=== PATIENT | male | born 1960 ===

== ENCOUNTER 2023-10-28 12:54 | Outpatient (AMB) | payer OTHER, SELFPAY ==
--- NOTE | 2023-10-28 13:01 | A.OFFVIS_ITS ---
Vital Signs 10/28/23 13:08 Height 6 ft 4 in Weight 212 lb BMI 25.8 BP 119/74 Blood Pressure Location Rt brachial Position Sitting Pulse 68 Intake Visit Reasons: condyloma Intake Note: Patient referred by pcp Dr. Meyers for condyloma on Rt scrotum. Unsure how long lesion has been present. Patient c/o: denies pain, irritation, oozing. Pet Caregiver Required: No Accompanied by: Self / Same As Patient Allergies No Known Allergies Allergy (Verified 10/28/23 13:05) HPI Comments Details: Patient presents for evaluation of a couple of perineal warts which he has had for several years time. He would like to have this addressed. He has no such lesions elsewhere. Patient was brought to the healthy male. He is sexually active and is current partner is vaccinated against HPV. He has no other genitourinary symptoms. [facility] Medical History (Updated 10/28/23 @ 13:42 by Gilberto Perez MD) Varicose veins of bilateral lower extremities with pain PTSD (post-traumatic stress disorder) Family History (Updated 10/28/23 @ 13:07 by AYANA Hernandez) Father H/O heart bypass surgery Social History (Updated 10/28/23 @ 13:07 by AYANA Hernandez) Patient Tobacco Use Status: Never used Tobacco Physical Exam Vital Signs: Last Vital Signs Pulse 68 10/28/23 13:08 BP 119/74 10/28/23 13:08 BMI result Body Mass Index 25.8 GI Other: Abdomen and patient examined supine and in no obvious umbilical or groin hernias. Genitalia within normal limits aside from findings listed in . Other: Patient has 2-3 very small condylomata acuminata of the right upper inner thigh/peritoneum. Genitalia otherwise within normal limits. Assessment & Plan Assessment & Plan (1) Condyloma acuminatum in male: Code(s): A63.0 - Anogenital (venereal) warts Category: Medical Plan No acute surgical issues at this time. 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 At present, no acute surgical issues patient will follow I's follow up p.r.n.. Coding Level of Care Code New Pt Level 4 (97620) Diagnoses Condyloma acuminatum in male A63.0
[2023-10-28 13:08] VITALS: BP 119/74; PULSE 68; BMI 25.8
== END 2023-10-28 13:20 | disposition home or self-care (01) ==
PROVIDERS: PCP Internal Medicine; Visit Provider Surgery
DX: A63.0 Anogenital (venereal) warts (principal)
CPT/HCPCS: 99203

== ENCOUNTER → 2023-10-28 12:54 | Outpatient (BNVA) | payer OTHER, SELFPAY | PROVIDERS: PCP Internal Medicine; Visit Provider Surgery | DX: A63.0 Anogenital (venereal) warts (principal) | CPT/HCPCS: 99202 ==

== ENCOUNTER 2024-05-22 12:49 | Outpatient (REF) | payer OTHER, SELFPAY ==
--- NOTE | ~2024-05-22 | XR_ITS ---
EXAMINATION: XR HAND, RIGHT CLINICAL INFORMATION: Pain in hand COMPARISON: None available. TECHNIQUE: PA, lateral, and oblique views of the right hand. FINDINGS: There is a subacute appearing distal fifth metacarpal fracture without significant displacement or angulation. There is periosteal new bone formation present suggesting healing. Fracture lines appear somewhat sclerotic but are still visualized. No prior for comparison. The remainder of the right hand and wrist appear normal. No significant arthropathy. Mild soft tissue swelling overlying the fifth MCP region. XR/XR hand RT 2V IMPRESSION: Subacute nondisplaced distal fifth metacarpal fracture. Evidence of early healing. Electronically signed by: Yosvany Turner MD 05/25/2024 09:30 AM EDT RP
== END 2024-05-22 12:50 | disposition home or self-care (01) ==
LOC: HO.XRAY 12:49
PROVIDERS: PCP Internal Medicine; Visit Provider Internal Medicine
DX: M79.641 Pain in right hand (principal)
CPT/HCPCS: 73120

== ENCOUNTER → 2024-05-22 13:00 | Outpatient (BNV) | payer OTHER, SELFPAY | PROVIDERS: PCP Internal Medicine; Visit Provider Radiology Diagnostic Radiology | DX: M79.641 Pain in right hand (principal) | CPT/HCPCS: 73120 ==

== ENCOUNTER 2024-06-01 13:58 | Outpatient (AMB) | payer OTHER, SELFPAY ==
--- NOTE | 2024-06-01 14:09 | A.OFFVIS_ITS ---
Intake Visit Reasons: (R) inguinal hernia Intake Note: Patient referred by pcp Dr. Meyers for Right inguinal hernia. 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 Because of progression of symptoms, he wished to have this repaired. Patient otherwise is tolerating a diet. Has regular bowel habits. He does occasional heavy lifting at his gym but no strenuous activities at work. Chart was reviewed and patient evaluated. [facility] Medical History (Updated 10/28/23 @ 13:42 by Gilberto Perez MD) Varicose veins of bilateral lower extremities with pain PTSD (post-traumatic stress disorder) Family History (Updated 10/28/23 @ 13:07 by AYANA Hernandez) Father H/O heart bypass surgery Social History (Updated 10/28/23 @ 13:07 by AYANA Hernandez) Patient Tobacco Use Status: Never used Tobacco Physical Exam Chest Other: Chest sounds bilaterally, HS 1 in 2 GI Other: Patient was examined both supine and standing with Valsalva. Left groin negative. Genitalia within normal limits. Moderately sized right inguinal hernia reducible. Abdomen otherwise soft and benign. Assessment & Plan Assessment & Plan (1) Right inguinal hernia: Code(s): K40.90 - Unilateral inguinal hernia, without obstruction or gangrene, not specified as recurrent Category: Surgical Plan: Risks, benefits, and alternatives of open right inguinal herniorrhaphy with Bard mesh were reviewed with the patient and included but not limited to bleeding, infection, recurrence, numbness, pain, scarring the patient wished to proceed. All questions answered. Arrangements will be made for this on a day which is convenient for him. Coding Level of Care Code New Pt Level 5 (53223) Diagnoses Right inguinal hernia K40.90
== END 2024-06-01 14:23 | disposition home or self-care (01) ==
PROVIDERS: PCP Internal Medicine; Visit Provider Surgery
DX: K40.90 Unilateral inguinal hernia, without obstruction or gangrene, not specified as recurrent (principal)
CPT/HCPCS: 99214

== ENCOUNTER → 2024-06-01 13:58 | Outpatient (BNVA) | payer OTHER, SELFPAY | PROVIDERS: PCP Internal Medicine; Visit Provider Surgery | DX: K40.90 Unilateral inguinal hernia, without obstruction or gangrene, not specified as recurrent (principal) | CPT/HCPCS: 99212 ==

== ENCOUNTER 2024-07-02 07:50 | Day surgery (SDC) | payer OTHER, SELFPAY ==
[2024-06-18 09:14] VITALS: BMI 23.7
--- NOTE | 2024-06-30 14:17 | HO.ANESPROP2 ---
Documented by User: Yuliya Ma NP 06/30/24 14:17 HPI - Anesthesia Eval Consult details Narrative: 64yo M for Right Hernia Inguinal Reducible with mesh PMFSH Active Problems Active Problems: All Active Problems Right inguinal hernia (Acute) Condyloma acuminatum in male (Acute) Past Medical History Medical History Scoliosis Low back pain Erectile dysfunction Rosacea Anxiety RLS (restless legs syndrome) Bipolar disorder Varicose veins of bilateral lower extremities with pain PTSD (post-traumatic stress disorder) Family History Family History Father H/O heart bypass surgery Surgical History Surgical History Hx of varicose vein ligation Social History Social History (Updated 06/18/24 @ 09:25 by Meri Michaud RN) Are you a primary care information associate to a significant other at home: No Do you presently have visiting nurse or other home services: No Patient Tobacco Use Status: Former Tobacco user Tobacco use type: Cigarette Use of substances other than those prescribed or required for medical reasons: No Have you been hit, kicked, punched, or otherwise hurt by someone within the past year? If so, by whom?: No Are you DNR?: No Advance Directives: No Advance Directives Information Provided: Yes Advance Directives on File: No Poor oral hygiene: No Meds Allergies Allergy/AdvReac Type Severity Reaction Status Date / Time No Known Allergies Allergy Verified 07/02/24 08:07 Home Medications ?Medication ?Instructions ?Recorded ?Confirmed ?Last Taken ?Type clonazepam 0.5 mg tablet 0.5 mg PO TID PRN Anxiety 10/28/23 07/02/24 07/02/24 History metronidazole 1 % topical gel 1 appl topical DAILY 10/28/23 06/17/24 Unknown History buspirone 5 mg tablet 5 mg PO DAILY 06/17/24 07/02/24 07/02/24 History lamotrigine 150 mg tablet 350 mg PO DAILY 06/17/24 07/02/24 07/02/24 History tadalafil 20 mg tablet (Cialis) 20 mg PO DAILY 06/18/24 06/18/24 Unknown History Exam Height,Weight and Vital Signs: Height 6 ft 4 in Weight 88.451 kg Assessment and Plan Assessment Anesthesia Assessment: Chart Reviewed Documented by User: Kiran Gilbert MD 07/02/24 08:35 [facility] Past Medical History Medical History Scoliosis Low back pain Erectile dysfunction Rosacea Anxiety RLS (restless legs syndrome) Bipolar disorder Varicose veins of bilateral lower extremities with pain PTSD (post-traumatic stress disorder) Family History Family History Father H/O heart bypass surgery Family history of problems with anesthesia: No Surgical History Surgical History Hx of varicose vein ligation History of Problems with Anesthesia: No Social History Social History (Updated 06/18/24 @ 09:25 by Meri Michaud RN) Are you a primary care information associate to a significant other at home: No Do you presently have visiting nurse or other home services: No Patient Tobacco Use Status: Former Tobacco user Tobacco use type: Cigarette Use of substances other than those prescribed or required for medical reasons: No Have you been hit, kicked, punched, or otherwise hurt by someone within the past year? If so, by whom?: No Are you DNR?: No Advance Directives: No Advance Directives Information Provided: Yes Advance Directives on File: No Poor oral hygiene: No Meds Allergies Allergy/AdvReac Type Severity Reaction Status Date / Time No Known Allergies Allergy Verified 07/02/24 08:07 Home Medications ?Medication ?Instructions ?Recorded ?Confirmed ?Last Taken ?Type clonazepam 0.5 mg tablet 0.5 mg PO TID PRN Anxiety 10/28/23 07/02/24 07/02/24 History metronidazole 1 % topical gel 1 appl topical DAILY 10/28/23 06/17/24 Unknown History buspirone 5 mg tablet 5 mg PO DAILY 06/17/24 07/02/24 07/02/24 History lamotrigine 150 mg tablet 350 mg PO DAILY 06/17/24 07/02/24 07/02/24 History tadalafil 20 mg tablet (Cialis) 20 mg PO DAILY 06/18/24 06/18/24 Unknown History Exam Airway Mallampati Class: II TM Dist: >3cm Neck ROM: Full Loose/Missing/Broken Teeth: No Heart: ok Lungs: ok Assessment and Plan Assessment Anesthesia Assessment: Anesthesia Plan Discussed Final Anesthetic Review Family History of Problems with Anesthesia: No History of Problems with Anesthesia: No NPO: Yes ASA Class: II Final Preanesthetic Review: No Changes in Pt Med Stat, Meds/Allgs Chart Reviewed, Consent Obtained/Reviewed and Anes Risks/Benef Reviewed Patient Risk: Low Procedure Risk: Low Anesthetic Plan Anesthetic Plan: GA and Agree w/ Assess. and Plan Disposition: Standard PACU
[2024-07-02 08:16] VITALS: BP 121/66; PULSE 80; RESP 14; TEMP 36.8; O2SAT 98
--- NOTE | 2024-07-02 08:29 | MHC.SHP ---
Pre-Procedural Eval Section A - 24 Hr Update-Section A only Date of Service: 07/02/24 The patient is an INPATIENT: No Changes since office visit: Yes Patient answered all questions; No Cold of Flu in the past 2 weeks, No New Medical Problems and No Changes in Medication The patient has been examined within 24 hours of the surgical procedure. The History & Physical has been completed within 30 days and I have reviewed it.: No Section B - Complete if H&P > 30 days Chief Complaint: Unilateral inguinal hernia, without obstruction or Details of Present Illness: 64-year-old male patient with a gradually enlarging right inguinal hernia. He also now reports some symptoms in the left groin. He denies nausea, vomiting, constipation, difficulty urinating, fever or chills. He denies a previous history of hernia repairs. Relevant Family History (Specify if Yes): No Relevant Social History: None Present Medications: see Short Stay Collaborative assessment Medical History: No relevant PMH History of Previous Operations: No relevant previous surgery Allergies: Allergies Allergy/AdvReac Type Severity Reaction Status Date / Time No Known Allergies Allergy Verified 07/02/24 08:07 Review of Systems Sugical H&P ROS: Negative: Constitution, Cardiovascular, Respiratory, Gastrointestinal, Genitourinary and Musculoskeletal Exam Surgical H&P Exam: Normal: HEENT, Normal: Heart, Normal: Lungs, Normal: Extremities and Normal: Skin and Significant Findings: Abdomen (Palpable lump in the right groin which increases with Valsalva maneuvers but reduces spontaneously. Possible early weakness in the left groin) Plan Diagnosis/Plan: Unchanged I have reviewed the history and physical and performed a pertinent physical examination on my patient. No changes have occurred unless specified. I reviewed the procedure, risks, and alternatives of an open repair of the right inguinal hernia with mesh. All his questions were answered to his apparent satisfaction. After discussion of the risks alternatives and benefits he consents to a repair of the right inguinal hernia with mesh. Time Spent With Patient Time: Total time managing care of this patient today ____ minutes.
[2024-07-02] MEDS: Lactated Ringers 1,000 ML 100 ML IVCONT (08:31)
[2024-07-02] MEDS: ceFAZolin Sodium/Dextrose,Iso 2 GM/50 ML PIGGYBACK IV (08:32)
--- NOTE | 2024-07-02 09:27 | W.PM.OPN ---
Operative Note Operative Note Date of Service: 07/02/24 Narrative: Preoperative diagnosis: Right inguinal hernia, reducible Postoperative diagnosis: Same Procedure: Repair of a reducible right inguinal hernia with mesh Surgeon: Javon Romero MD Forensic Science Technician: Esther Ventura PA-C; Jer Costa PA-C Anesthesia: General LMA Indications for procedure: 64-year-old male patient presenting with a painful lump in the right groin which is gradually increasing in size. This increases with exercise. Denies nausea, vomiting, diarrhea or constipation. On examination there is a reducible right inguinal hernia with minimal discomfort. A slight weakness is noted in the left groin without a cara hernia. Operative findings: Indirect right inguinal hernia Specimen: Hernia sac Estimated blood loss: Less than 2 mL Complications: None Procedure details: Patient was brought to the OR and placed in a supine position. After administering general anesthesia the patient's abdomen was prepped with ChloraPrep and draped in a sterile fashion. A surgical time-out was called the consent confirmed. Patient received preoperative antibiotics and Venodyne boots were in place. Local anesthesia consisting of 0.5% Sensorcaine was infiltrated over the right inguinal ligament. Incision was then made with a scalpel and carried out through subcutaneous tissue, past Adonis's fashion up to the external oblique aponeurosis. Additional local was infiltrated below the external oblique aponeurosis. This was then incised with a scalpel widened with the Metzenbaum scissors. The spermatic cord was then dissected free from the surrounding inguinal canal and retracted using a Rekha drain. The floor of the inguinal canal was noted to be normal without hernia. Fibers of the cremaster muscle were then . A large hernia sac was then identified extending almost to the external ring. This was dissected free from the surrounding spermatic cord. This sac was opened and its contents reduced. The sac was then ligated at the internal ring using a 0 Polysorb suture and excised. This was sent as a specimen. Attention was then directed to the floor of the inguinal canal. Fibers of the internal oblique and transversalis aponeurosis were then incised with electrocautery and the preperitoneal space entered. This was then widened with a open Ray-Keith sponge. A large PHS mesh was then obtained. The circular underlay was deployed within the preperitoneal space in the overlay secured to the pubic tubercle, conjoined tendon, and shelving edge of the inguinal ligament using 0 Polysorb sutures. A slit was made in the mesh in the mesh wrapped around the spermatic cord at the internal ring. This was then secured to the shelving edge of the inguinal ligament. The wrap was tight enough to allow only the passage of the tip of the index finger. Wounds were then irrigated with saline solution and suctioned dry. Hemostasis was assured using electrocautery. External oblique aponeurosis was then closed using a running 2-0 Polysorb suture. Approximately 5 mL of Zenrelef was then instilled around the spermatic cord below the external oblique aponeurosis. Adonis's fascia was then reapproximated using interrupted 3-0 Polysorb sutures. Dermis was reapproximated using interrupted 3-0 Polysorb sutures. Skin was then closed using a running subcuticular 4-0 Polysorb suture. Sterile dressings consisting of Steri-Strips, 2 x 2 gauze and Tegaderm were then applied. The patient tolerated the procedure well. Sponge, instrument, and needle counts reported as correct. The patient was transferred to PACU in stable condition.
[2024-07-02 09:50] VITALS: BP 113/69; PULSE 65; RESP 17; TEMP 36.4; O2SAT 97
[2024-07-02 09:55] VITALS: BP 105/62; PULSE 68; RESP 17; O2SAT 96
[2024-07-02 10:00] VITALS: BP 106/74; PULSE 74; RESP 17; O2SAT 96
[2024-07-02 10:05] VITALS: BP 100/63; PULSE 64; RESP 17; O2SAT 97
[2024-07-02 10:20] VITALS: BP 107/68; PULSE 62; RESP 17; TEMP 36.4; O2SAT 97
== END 2024-07-02 11:00 | disposition home or self-care (01) ==
PROVIDERS: PCP Internal Medicine; Visit Provider Surgery
PROC: (CPT 49505; principal; 2024-07-02 09:50)
DX: K40.90 Unilateral inguinal hernia, without obstruction or gangrene, not specified as recurrent (principal); I83.813 Varicose veins of bilateral lower extremities with pain; L71.9 Rosacea, unspecified; F31.9 Bipolar disorder, unspecified; F41.9 Anxiety disorder, unspecified; F43.10 Post-traumatic stress disorder, unspecified; F12.10 Cannabis abuse, uncomplicated; Z79.899 Other long term (current) drug therapy; Z87.891 Personal history of nicotine dependence
CPT/HCPCS: 49505; 88302; C1781; C9088; J0690; J1885; J2003; J2704; J2795; J3010

== ENCOUNTER → 2024-07-02 07:50 | Outpatient (BNV) | payer OTHER, SELFPAY | PROVIDERS: PCP Internal Medicine; Visit Provider Surgery | DX: K40.90 Unilateral inguinal hernia, without obstruction or gangrene, not specified as recurrent (principal) | CPT/HCPCS: 49505 ==

== ENCOUNTER 2024-07-13 12:57 | Outpatient (AMB) | payer OTHER, SELFPAY ==
--- NOTE | 2024-07-13 13:10 | MHC.OFFVIS ---
Vital Signs 07/13/24 13:15 Weight 192 lb BP 130/65 Blood Pressure Location Rt brachial Position Sitting Pulse 84 Intake Visit Reasons: S/P RIH w/mesh Intake Note: Patient is seen in office for post op assessment post Repair of a reducible right inguinal hernia with mesh. Pt c/o: swelling, bruising around incision. Denies pain. No longer taking rx pain meds. Steri strips still in place. 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 States he has had mild pain is improving, he needed the use pain medications for a few days but has been using NSAIDs over the past week. He also notes some swelling around the incision, but states he does not see any redness denies any drainage from the incision site, he has left dressing and Steri-Strips in place. He denies any strenuous activity or heavy lifting. He has questions about when he can resume sexual intercourse. He has no additional concerns at this time [facility] Medical History Scoliosis Low back pain Erectile dysfunction Rosacea Anxiety RLS (restless legs syndrome) Bipolar disorder Varicose veins of bilateral lower extremities with pain PTSD (post-traumatic stress disorder) Surgical History History of right inguinal hernia repair (07/02/24) Hx of varicose vein ligation Family History Father H/O heart bypass surgery Social History Are you a primary healthcare liaison to a significant other at home: No Do you presently have visiting nurse or other home services: No Patient Tobacco Use Status: Former Tobacco user Tobacco use type: Cigarette Review of Systems Const All systems reviewed & are unremarkable except as noted in HPI and below Physical Exam Vital Signs: Last Vital Signs Pulse 84 07/13/24 13:15 BP 130/65 07/13/24 13:15 GI Other: Dressing and Steri-Strips present time of evaluation, dressing was removed incision site looks clean and intact, no surrounding erythema, no discharge Inspection: Yes Abdominal wall edema (Mild, inferior to the incision site) Palpation (GI): Soft to palpation, Tenderness to palpation present (GI) (mild incisional), no guarding and not rigid Assessment & Plan Assessment & Plan (1) S/P inguinal hernia repair: Comment: Right, with mesh Code(s): Z98.890 - Other specified postprocedural states; Z87.19 - Personal history of other diseases of the digestive system Category: Surgical Plan 64-year-old male status post right inguinal hernia repair with mesh on 07/02/2024 presenting to the office for routine follow-up. Surgical specimen pathology results as follows; Mesothelial-lined fibrovascular and adipose tissue with chronic inflammation and granulation tissue formation, consistent with hernia sac. Abdominal exam is largely benign, some mild edema noted just inferior to the incision site, appropriate at this point in recovery. Patient is doing well, pain is improving and well managed with [id number] medications. Incision site is clean dry and intact no concerns for infection. Instructed the patient that he can remove Steri-Strips in the shower. We discussed his return to sexual intercourse, recommended abstaining at this time until his follow-up appointment in 1 month where we will reassess and give further recommendations. Discussed continuing activity restrictions, no heavy lifting greater than 15-20 lb and no strenuous exercises, patient agreeable to this. We discussed return precautions including redness, discharge, pain, warmth of the incision site or any other concerns prior to his next follow-up appointment in 4 weeks. Coding Level of Care Code Global (28258) Diagnoses S/P inguinal hernia repair Z98.890; Z87.19
[2024-07-13 13:15] VITALS: BP 130/65; PULSE 84
--- OUTSIDE RECORDS SUMMARY | 2024-07-13 13:18 | XMS_ITS | Continuity of Care Document ---
Author Organization [facility] Address [address] [place] [address] Phone Care Team Providers Care Stage Technician Name Role Phone Saurabh SHIN, RVT, GINA, Paco Unavailable U navailable Procedures Procedure Date 18-30mmHg Below knee gradient compressio n stockin Office/Outpt E&M Established 15 Mins- CT & [place] Duplex Scan-extrem Veins; Comp- CT & [place] Phleb Veins - Extrem - To - CT & MA Ap Duplex Scan-extrem Veins; Uni/ CT & MA A Endovenous Laser, 1st Vein- CT & MA Endovenous Laser, 1st Vein- CT & [place] Ultrason Guidan Needle Bx-rad- CT & MA A Inj Sclerosing Solution; Sngl- CT & MA A Phleb Veins - Extrem - To 20- CT & MA Ma Duplex Scan-extrem Veins; Uni/ CT & MA M Endovenous Laser, 1st Vein Endovenous Laser, 1st Vein Inj Scleros Solut; Mx Veins 1 4 Ultrason Guidan Needle Bx-rad 4 Offic/outpt E&m Estab 5 Min Trial - Tele medicine Offic Cons New/estab Mod-hi 60 Duplex Scan-extrem Veins; Comp Advance Directives Directive Yes / No Effective Date File Name No Information Encounters Encounter Description Practice Location Reason(s) For Visit Diagnoses Date Provider Providers Copied on Encounter [place] [facility]y CALDERON, [address] [place] [address] Dr Avendaño 1000SuLoreta arvizu [place], [id number], tel:[phone] [place] - [place] Venous insufficiency (chronic) (peripheral) 4 Saurabh SHIN RVT, RPVI Robert. [address] [place] [address], [facility] [place], [id number], [place]. tel:[phone] Referring Provider: Mihaela Watts MD, [place], [address]. tel:[phone] Office/Outpt E&M Established 15 Mins- CT & [place] [facility] MD CALDERON, [address] [place] [address] Dr Avendaño 1000SuLoreta arvizu [place], [id number], [place] tel:[phone] [place] Venous insufficiency (chronic) (peripheral) 4 Saurabh SHIN RVT, RPVI Robert. [address] [place] [address], [place], [id number], [place]. tel:[phone] Referring Provider: Mihaela Watts MD, [address], [place], [address]. tel:[phone] [facility] MD CALDERON, [address] [place] [address] Dr Avendaño 1000SuLoreta arvizu [place], [id number], [place] tel:[phone] [place] - [place] Encounter for follow-up examination after completed treatment for conditions other than malignant neVaricose veins of bilateral lower extremities with pain 4 Saurabh SHIN RVT, RPVI Robert. [address] [place] [address], Jose [place]tero [place], [id number], [place]. tel:[phone] Referring Provider: Mihaela Watts MD, [place], [address]. tel:[phone] [facility] Susy CALDERON, [address] [place] [address] Dr Avendaño 1000SuLoreta arvizu MD, [id number], [place] tel:[phone] [place] Varicose veins of left lower extremity with other complications Apr-0 5- 4 Noah MARIE Mariajose. [address] [place] [address], Suite [facility], [facility] [place], [id number], [place]. tel:[phone] Referring Provider: Mihaela Watts MD, [address] [place] [address] , [place], [address]. tel:[phone] [facility], [address] [place] [address] [address] L[place]ta Esposito [place], [id number], [place] tel:[phone] [place] - [place] Encounter for follow-up examination after completed treatment for conditions other than malignant neVaricose veins of left lower extremity with pain Apr-0 5- 4 Saurabh SHIN RVT, GINA Antonio. [address] [place] [address], [facility] [place], [id number], [place]. tel:[phone] Referring Provider: Mihaela Watts MD, [facility] , [place], [address]. tel:[phone] [facility], [address] [place] [address] [address] L[place]ta Esposito MD, [id number], [place] tel:[phone] [place] Varicose veins of left lower extremity with other complications Apr-0 3- 4 Saurabh SHIN RVT, GINA Antonio. [address] [place] [address], Suite [facility], [facility] [place] [place], [id number], [place]. tel:[phone] Referring Provider: Mihaela Watts MD, [address] [place] [address] [place], [address]. tel:[phone] [facility], [address] [place] [address] [address] [place]ta Esposito [place], [id number], [place] tel:[phone] CV[place] - [place] Chronic venous hypertension (idiopathic) with inflammation of left lower extremity Apr-0 2- 4 Saurabh SHIN RVT, GINA Antonio. [address] [place] [address], Suite [facility], Jose montero [place], [id number], [place]. tel:[phone] Referring Provider: Mihaela Watts MD, Josef [facility] , [place], [address]. tel:[phone] [facility], [address] [place] [address] Dr Avendaño 1000Suite Loreta Esposito [place], [id number], [place] tel:[phone] [place] Varicose veins of right lower extremity with other complications Mar-2 4 Lisa Bar. [facility] [address], Jose [place], [id number], [place]. tel:[phone] Referring Provider: Mihaela Watts MD, [facility] , [place], [address]. tel:[phone] [facility], [address] [place] [address] Dr Avendaño 1000Suite Loreta Esposito [place], [id number], [place] tel:[phone] CV[place] Encounter for follow-up examination after completed treatment for conditions other than malignant neVaricose veins of right lower extremity with pain May-2 4 Saurabh SHIN RVT, GINA Antonio. [facility]0 [place] [address], Jose [place]tero [place], [id number], [place]. tel:[phone] Referring Provider: Mihaela Watts MD, [address], [place], [address]. tel:[phone] [facility], [address] [place] [address] [address]Loreta [place], [id number], [place] tel:[phone] [place] Varicose veins of right lower extremity with other complications May-2 4 Saurabh SHIN RVT, RPVI Robert. [address] [place] [address], Jose [place]tero [place], [id number], [place]. tel:[phone] Referring Provider: Mihaela Watts MD, [place], [address]. tel:[phone] [facility], [address] [place] [address] [address]Loreta MD, [id number], tel:[phone] CV[place] - [place] Varicose veins of right lower extremity with other complications May-2 0 4 Saurabh SHIN RVT, GINA Antonio. [address] [place] [address], [place] [address], [place], [place], [id number], [place]. tel:[phone] Referring Provider: Mihaela Watts MD, [place], [address]. tel:[phone] Offic/outpt E&m Estab 5 Min Trial - Telemedicine [facility], [address] [place] [address] [address]Loreta MD, [id number], [place] tel:[phone] [place] - [place] Chronic venous hypertension (idiopathic) with other complications of bilateral lower extremityCram p and spasmRestless legs syndromeLocal ized edemaPruritus , unspecified Fe 4 Saurabh SHIN RVT, GINA Antonio. [address] [place] [address], [facility] [place], [id number], [place]. tel:[phone] Referring Provider: Mihaela Watts MD, [address], [place], [address]. tel:[phone] Offic Cons New/estab Mod-hi 60 [facility], [address] [place] [address] [address]L[place], [id number], [place] tel:[phone] [place] - [place] Varicose veins of bilateral lower extremities with other complications Pain in right lower legPain in left lower legPain in right legRestless legs syndromePruri tus, unspecifiedFl ail joint, unspecified jointPain in left legCramp and spasmLocalize d edema 3 Saurabh SHIN RVT, GINA Antonio. [address] [place] [address], [address], [facility] [place], [id number], [place]. tel:[phone] Referring Provider: Mihaela Watts MD, [place], [address]. tel:[phone] [facility], [address], [place], [id number], [place] tel:[phone] [facility] Chronic venous hypertension (idiopathic) with other complications of bilateral lower extremity 3 Luis SHIN FACS RVT GINA Caldwell. [address], [address], [place], [address], [place]. tel:[phone] Referring Provider: Mihaela Watts MD, [address] [place] [address] , [place], [address]. tel:[phone] Family History Family Member Type Diagnosis Age At Onset No Information Payers Payer name Insurance type Covered green party ID Authoriza tion(s) No Information Social History Type Description Quantity Date Captured Comments Sex Male Smoking Status No Information Chief Complaint And Reason For Visit No Information Reason For Referral Reason For Referral No Information Plan Of Treatment Date Type Action Status Goal Diet education completed Goal Diet education completed Referral Ordered: Weight management: Referral to physician timeframe: 3 Months (related to Body mass index (BMI) 24.0-24.9, adult) ordered Referral Ordered: Weight management: Referral to physician timeframe: 3 Months (related to Body mass index (BMI) 24.0-24.9, adult) ordered History Of Present Illness Encounter Date Complaint History Of Prese nt Illness No Information Functional Status Date Functional Assessmen t No Information Instructions Date Instruction Additional Infor mation Diet education Related to Body mass index (BMI) 24.0-24.9, adult Giving Encouragement to exercise Related to Body mass index (BMI) 24.0-24.9, adult Lifestyle education Related to B myron mass index (BMI) 24.0-24.9, adult Compression stocking usage as conservative measure Related to Venous insufficiency (chronic) (peripheral) Patient education booklet given Related to Venous insufficiency (chronic) (peripheral) Patient education booklet given Related to Chronic venous hypertension (idiopathic) with other complications of bilateral lower extremity Pre and post instruc tions reviewed and provided Related to Chronic venous hypertension (idiopathic) with other complications of bilateral lower extremity Giving Encouragement to exercise Related to Body mass index (BMI) 24.0-24.9, adult Lifestyle education Related to B myron mass index (BMI) 24.0-24.9, adult Patient education booklet given Related to Varicose veins of bilateral lower extremities with other complications Pre and post instruc tions reviewed and provided Related to Varicose veins of bilateral lower extremities with other complications Diet education Related to Body mass index (BMI) 24.0-24.9, adult Assessments Type Assessment Date No Information Patient Care Teams Name Effective Dates (start - stop) Status Members No Information
== END 2024-07-13 13:25 | disposition home or self-care (01) ==
LOC: HO.HGS 12:57
PROVIDERS: PCP Internal Medicine
DX: Z98.890 Other specified postprocedural states (principal); Z87.19 Personal history of other diseases of the digestive system
CPT/HCPCS: 99024

== ENCOUNTER → 2024-07-13 12:57 | Outpatient (BNVA) | payer OTHER, SELFPAY | PROVIDERS: PCP Internal Medicine | DX: Z48.815 Encounter for surgical aftercare following surgery on the digestive system (principal); Z87.19 Personal history of other diseases of the digestive system | CPT/HCPCS: 99212 ==

== ENCOUNTER 2024-08-13 11:18 | Outpatient (AMB) | payer OTHER, SELFPAY ==
[2024-08-13 11:34] VITALS: BP 106/60; RESP 16
--- NOTE | 2024-08-13 11:34 | MHC.OFFVIS ---
Vital Signs 08/13/24 11:34 BP 106/60 Blood Pressure Location Lt brachial Position Sitting Respiration 16 Intake Visit Reasons: 1mth fuv S/P RIH w/mesh Intake Note: Pt states, I'm here for 5 week f/u of my hernia repair. 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 He denies any pain. He does note some swelling around the incision site and in the right scrotum however this is improving each day. He has questions about returning to activity, would like to return to strength training [facility] Medical History Scoliosis Low back pain Erectile dysfunction Rosacea Anxiety RLS (restless legs syndrome) Bipolar disorder Varicose veins of bilateral lower extremities with pain PTSD (post-traumatic stress disorder) Surgical History History of right inguinal hernia repair (07/02/24) Hx of varicose vein ligation Family History Father H/O heart bypass surgery Social History Are you a primary ambulatory care nurse to a significant other at home: No Do you presently have visiting nurse or other home services: No Patient Tobacco Use Status: Former Tobacco user Tobacco use type: Cigarette Review of Systems Const All systems reviewed & are unremarkable except as noted in HPI and below Physical Exam Vital Signs: Last Vital Signs Resp 16 08/13/24 11:34 BP 106/60 08/13/24 11:34 Const General: comfortable and no acute distress Orientation/consciousness: patient oriented x3 Resp Effort & Inspection: normal respiratory effort and able to speak in complete sentences GI Other: Right inguinal hernia incision site appears to be healing well mild swelling inferior to the incision site. No surrounding erythema, no palpable fluid collection nontender Inspection: Yes Abdominal wall edema (Inferior to incision site) Palpation (GI): Soft to palpation, not firm, nontender, no guarding and not rigid Neuro General: patient oriented x3 Assessment & Plan Assessment & Plan (1) S/P inguinal hernia repair: Comment: Right, with mesh Code(s): Z98.890 - Other specified postprocedural states; Z87.19 - Personal history of other diseases of the digestive system Category: Medical Plan 64-year-old male s/p right inguinal hernia repair with mesh on 07/02/2024 reports the office for routine follow-up. Patient is doing well, experiencing mild swelling around the incision site however this is improving. Bowel function appetite are at baseline. He is not experiencing any pain at this time. Incision site appears intact, healing well no concern for infection at this time. His abdominal exam is soft and benign. We discussed returning to activity, patient has no further restrictions, however I recommended that he slowly returned to his baseline level of activity. At this point the patient is no longer requiring follow-up, he can follow up as needed with any future concerns Coding Level of Care Code Global (20342) Diagnoses S/P inguinal hernia repair Z98.890; Z87.19
--- OUTSIDE RECORDS SUMMARY | 2024-08-13 13:17 | XMS_ITS | Continuity of Care Document ---
Author Organization [facility] Address [address] [place] [address] Phone Care Team Providers Care Parking Station Attendant Name Role Phone Saurabh SHIN, RVT, GINA, [...] Diagnoses Date Provider Providers Copied on Encounter [place] [facility] Susy CALDERON, [address] [place] [address] Dr Avendaño 1000SuLoreta arvizu MD, [id number], tel:[phone] [place] Venous insufficiency (chronic) (peripheral) 4 Saurabh SHIN RVT, RPVI Robert. [address] [place] [address], [facility] [place], [id number], [place]. tel:[phone] Referring Provider: Mihaela Watts MD, [place], [address]. tel:[phone] Office/Outpt E&M Established 15 Mins- CT & [place] [facility] MD CALDERON, [address] [place] [address] Dr Avendaño 1000SuLoreta arvizu MD, [id number], [place] tel:[phone] CV[place] - [place] Venous insufficiency (chronic) (peripheral) 4 Saurabh SHIN RVT, RPVI Robert. [address] [place] [address], [place], [id number], [place]. tel:[phone] Referring Provider: Mihaela Watts MD, [address], [place], [address]. tel:[phone] [facility] MD CALDERON, [address] [place] [address] Dr Avendaño 1000SuLoreta arvizu MD, [id number], [place] tel:[phone] CVR - [place] - [place] Encounter for follow-up examination after completed treatment for conditions other than malignant neVaricose veins of bilateral lower extremities with pain 4 Saurabh SHIN RVT, RPVI Robert. [address] [place] [address], Jose montero [place], [id number], [place]. tel:[phone] Referring Provider: Mihaela Watts MD, [place], [address]. tel:[phone] [facility] Susy CALDERON, [address] [place] [address] Dr Avendaño 1000SuLoreta arvizu MD, [id number], [place] tel:[phone] [place] Varicose veins of left lower extremity with other complications Apr-0 5- 4 Noah MARIE Mariajose. [address] [place] [address], Suite [facility], [facility] [place], [id number], [place]. tel:[phone] Referring Provider: Mihaela Watts MD, [address] [place] [address] , [place], [address]. tel:[phone] [facility], [address] [place] [address] [address] [place] Esposito [place], [id number], [place] tel:[phone] CVR [place] Encounter for follow-up examination after completed treatment for conditions other than malignant neVaricose veins of left lower extremity with pain Apr-0 5- 4 Saurabh SHIN RVT, GINA Antonio. [address] [place] [address], [facility] [place] [place], [id number], [place]. tel:[phone] Referring Provider: Mihaela Watts MD, [facility] , [place], [address]. tel:[phone] [facility], [address] [place] [address] [address] [place] Esposito [place], [id number], [place] tel:[phone] CVR - [place] Varicose veins of left lower extremity with other complications Apr-0 3- 4 Saurabh SHIN RVT, GINA Antonio. [address] [place] [address], Suite [facility], [facility] [place] [place], [id number], [place]. tel:[phone] Referring Provider: Mihaela Watts MD, [address] [place] [address] [place], [address]. tel:[phone] [facility], [address] [place] [address] [address] L[place]ta Espos[place], [id number], [place] tel:[phone] CVR - [place] Chronic venous hypertension (idiopathic) with inflammation of left lower extremity Apr-0 2- 4 Saurabh SHIN RVT, GINA Antonio. [address] [place] [address], Suite [facility], Jose montero [place], [id number], [place]. tel:[phone] Referring Provider: Mihaela Watts MD, Josef [facility] , [place], [address]. tel:[phone] [facility], [address] [place] [address] Dr Avendaño 1000Suite Loreta Esposito [place], [id number], [place] tel:[phone] CVR - [place] Varicose veins of right lower extremity with other complications Mar-2 4 Lisa Bar. [facility] [address], Jose [place], [id number], [place]. tel:[phone] Referring Provider: Mihaela Watts MD, [facility] , [place], [address]. tel:[phone] [facility], [address] [place] [address] Dr Avendaño 1000Suite Loreta Esposito [place], [id number], [place] tel:[phone] CVR - [place] Encounter for follow-up examination after completed treatment for conditions other than malignant neVaricose veins of right lower extremity with pain May-2 4 Saurabh SHIN RVT, GINA Antonio. [facility] [place] [address], Jose montero [place], [id number], [place]. tel:[phone] Referring Provider: Mihaela Watts MD, [address], [place], [address]. tel:[phone] [facility], [address] [place] [address] [address] 1000Loreta [place], [id number], [place] tel:[phone] CVR - [place] Varicose veins of right lower extremity with other complications May-2 4 Saurabh SHIN RVT, RPVI Robert. [address] [place] [address], Jose montero [place], [id number], [place]. tel:[phone] Referring Provider: Mihaela Watts MD, [place], [address]. tel:[phone] [facility], [address] [place] [address] [address] 1000Loreta MD, [id number], tel:[phone] CVR - [place] Varicose veins of right lower extremity with other complications May-2 0 4 Saurabh SHIN RVT, GINA Antonio. [address] [place] [address], [place] [address], [place], [place], [id number], [place]. tel:[phone] Referring Provider: Mihaela Watts MD, [place], [address]. tel:[phone] Offic/outpt E&m Estab 5 Min Trial - Telemedicine [facility], [address] [place] [address] [address] 1000Loreta MD, [id number], [place] tel:[phone] CVR - [place] - [place] Chronic venous hypertension (idiopathic) with other complications of bilateral lower extremityCram p and spasmRestless legs syndromeLocal ized edemaPruritus , unspecified Fe 4 Saurabh SHIN RVT, GINA Antonio. [address] [place] [address], [facility] [place], [id number], [place]. tel:[phone] Referring Provider: Mihaela Watts MD, [address], [place], [address]. tel:[phone] Offic Cons New/estab Mod-hi 60 [facility], [address] [place] [address] [address] 1000Loreta [place], [id number], [place] tel:[phone] CVR - [place] Varicose veins of bilateral lower extremities with other complications Pain in right lower legPain in left lower legPain in right legRestless legs syndromePruri tus, unspecifiedFl ail joint, unspecified jointPain in left legCramp and spasmLocalize d edema 3 Saurabh SHIN RVT, GINA Antonio. [address] [place] [address], [address], [facility] [place], [id number], [place]. tel:[phone] Referring Provider: Mihaela Watts MD, [place], [address]. tel:[phone] [facility], [address], [place], [id number], [place] tel:[phone] [facility] Chronic venous hypertension (idiopathic) with other complications of bilateral lower extremity 3 Luis SHIN FACS RVT GINA Caldwell. [address] [facility], [address], [place], [address], [place]. tel:[phone] Referring Provider: Mihaela Watts MD, [address] [place] [address] , [place], [address]. tel:[phone] Family History Family Member Type Diagnosis Age At Onset No Information Payers Payer name Insurance type Covered constitution party ID Authoriza tion(s) No Information Social [...]
== END 2024-08-13 11:49 | disposition home or self-care (01) ==
LOC: HO.HGS 11:18
PROVIDERS: PCP Internal Medicine
DX: Z98.890 Other specified postprocedural states (principal); Z87.19 Personal history of other diseases of the digestive system
CPT/HCPCS: 99024

== ENCOUNTER → 2024-08-13 11:18 | Outpatient (BNVA) | payer OTHER, SELFPAY | PROVIDERS: PCP Internal Medicine | DX: Z48.815 Encounter for surgical aftercare following surgery on the digestive system (principal); Z98.890 Other specified postprocedural states; Z87.19 Personal history of other diseases of the digestive system | CPT/HCPCS: 99212 ==